=== PATIENT | female | born 1990 | race Two or more races ===

== ENCOUNTER 2024-03-01 18:59 | Emergency (ER) | payer OTHER ==
[~2024-03-01] VITALS: Ht 162.6 cm; Wt 65.8 kg
[~2024-03-01 18:59] MED LIST: CIPRO500 MG PO; PRENA1 TRUE CO1 EACH; RELAGESIC TABLE1 TAB PO
[2024-03-01] MEDS ORDERED: SYNTHROID75 MCG PO (19:56)
== END 2024-03-01 22:11 | disposition home or self-care (01) ==
LOC: ER 19:00
DX: O98.512 Other viral diseases complicating pregnancy, second trimester (principal); U07.1 COVID-19; Z3A.27 27 weeks gestation of pregnancy; Z88.6 Allergy status to analgesic agent; E03.9 Hypothyroidism, unspecified

== ENCOUNTER 2024-05-22 13:35 | Outpatient (CLI) | payer OTHER ==
[~2024-05-22 13:35] MED LIST changes: +SYNTHROID75 MCG PO
== END 2024-05-22 14:48 | disposition home or self-care (01) ==
LOC: NST 13:35
PROVIDERS: ATTEND Obstetrics & Gynecology Maternal & Fetal Medicine
DX: Z34.83 Encounter for supervision of other normal pregnancy, third trimester (principal)

== ENCOUNTER 2024-05-25 14:05 | Inpatient (IN) | payer OTHER ==
[2024-05-25] VITALS (7 sets, daily range): BP systolic 120–147; BP diastolic 67–86
[~2024-05-25] VITALS: Ht 170.2 cm; Wt 80.3 kg
[2024-05-25] MEDS ORDERED: AMPICILLIN SODIUM 2,000 MG VIAL ONE (14:09)
[2024-05-25] MEDS ORDERED: RINGERS SOLUTION,LACTATED 1,000 ML IV SCH (14:15)
[2024-05-25] MEDS ORDERED: AMPICILLIN SODIUM 2,000 MG VIAL IV ONE (14:15)
[2024-05-25] MEDS ORDERED: VALTREX1000 MG PO (14:29)
[2024-05-25] MEDS ORDERED: OXYTOCIN 20 UNITS/500ML RL PIGGYBAG IV ONE (15:02)
[2024-05-25] MEDS ORDERED: ERYTHROMYCIN BASE OPHT 1GM EACH TUBE OP ONE ×2 (15:02→20:00)
[2024-05-25] MEDS ORDERED: CHLORHEXIDINE GLUCONATE 120 ML BOTTLE TOP ONE ×2 (15:03→20:00)
[2024-05-25] MEDS ORDERED: OXYTOCIN 20 UNITS/1000ML RL PIGGYBAG IV ONE (15:03)
[2024-05-25] MEDS ORDERED: LIDOCAINE HCL 1% 10ML VIAL ONE (15:03)
[2024-05-25] MEDS ORDERED: OXYTOCIN 500 ML IV SCH (15:30)
[2024-05-25 15:49] LABS: HEMATOCRIT 40.6 % (36.0-45.00); HEMOGLOBIN 13.1 g/dL (12.0-15.00); MEAN CELL VOLUME 90.8 fL (80.00-100.00); MEAN CORPUSCULAR HEMOGLOBIN 29.4 pg (27.00-32.0); MEAN CORPUSCULAR HGB CONC 32.4 g/dl (32.0-36.0); PLATELET COUNT 155 K/uL (150-450); RED BLOOD COUNT 4.47 M/uL (4.00-6.00); RED CELL DISTRIBUTION WIDTH 16.7 % (11.5-14.5)
[2024-05-25 15:54] LABS: ALBUMIN 2.9 gm/dL (3.4-5.0); BILIRUBIN TOTAL 9.53 mg/dL (0.3-1.2); CALCIUM 10.3 mg/dL (8.5-10.1); CREATININE SERUM 1.81 mg/dL (0.55-1.02); GFR 32.4; GLOBULINA 4.4 G/DL (2.4-3.5); POTASSIUM 4.64 mEq/L (3.5-5.1); TOTAL PROTEIN 7.3 gm/dL (6.4-8.2)
[2024-05-25] MEDS ORDERED: MORPHINE SULFATE 4 MG/ML CARTRIDGE IV STA (16:08)
[2024-05-25 16:54] LABS: INR 1.42
[2024-05-25] MEDS ORDERED: AMPICILLIN SODIUM 1,000 MG VIAL IV SCH (17:00)
[2024-05-25] MEDS ORDERED: NALOXONE HCL 0.4 MG/ML AMPUL ONE (17:17)
[2024-05-25] MEDS ORDERED: IBUprofen 400 MG TABLET PO PRN (18:15)
[2024-05-25] MEDS ORDERED: OXYTOCIN 1,000 ML IV SCH (18:15)
[2024-05-25] MEDS ORDERED: OxyCODONE HCL/APAP UD (PERCOCET) PO PRN (18:15)
[2024-05-25 18:43] LABS: PARTIAL THROMBOPLASTIN TIME 38.9 SECONDS (22.0-34.0); PROTHROMBIN TIME 15.1 SECONDS (9.0-11.5)
[2024-05-25] MEDS ORDERED: NALOXONE HCL 0.4 MG/ML AMPUL IV ONE (20:00)
[2024-05-25] MEDS ORDERED: LIDOCAINE HCL 1% 10ML VIAL IJ ONE (20:00)
[2024-05-26 08:40] VITALS: BP 129/81
[2024-05-26 16:59] VITALS: BP 128/70
[2024-05-26 17:27] LABS: HEMATOCRIT 33.5 % (36.0-45.00); HEMOGLOBIN 10.7 g/dL (12.0-15.00); MEAN CELL VOLUME 91.4 fL (80.00-100.00); MEAN CORPUSCULAR HEMOGLOBIN 29.3 pg (27.00-32.0); PLATELET COUNT 145 K/uL (150-450); RED BLOOD COUNT 3.67 M/uL (4.00-6.00); RED CELL DISTRIBUTION WIDTH 16.9 % (11.5-14.5)
[2024-05-26 17:31] LABS: PH,URINE 5.5 (5.0-8.0); URINE APPEARANCE Cloudy; URINE BILIRRUBIN Negative (NEGATIVE); URINE BLOOD Large; URINE COLOR Yellow; URINE GLUCOSE Negative (NEGATIVE); URINE KETONE Negative (NEGATIVE); URINE LEUKOCYTE Small; URINE NITRATE Negative; URINE PROTEIN Negative (NEGATIVE); URINE UROBILINOGEN 0.2 E.U./dl
[2024-05-26 17:35] LABS: URINE BACTERIA 85.6 uL (0.0-1933); URINE EPITHELIAL CELLS 13.6 uL (0.0-38.8); URINE WBC 94.2 uL (0.0-23.2)
[2024-05-26 18:13] LABS: ALBUMIN 2.2 gm/dL (3.4-5.0); BILIRUBIN TOTAL 9.67 mg/dL (0.3-1.2); CALCIUM 9.1 mg/dL (8.5-10.1); CREATININE SERUM 1.84 mg/dL (0.55-1.02); GFR 31.79; GLOBULINA 3.3 G/DL (2.4-3.5); POTASSIUM 4.29 mEq/L (3.5-5.1); TOTAL PROTEIN 5.5 gm/dL (6.4-8.2)
[2024-05-26 18:19] LABS: URINE CAST 0.14 uL (0.0-1.40)
[2024-05-26 23:34] VITALS: BP 141/86
[2024-05-27 07:49] VITALS: BP 136/78
[2024-05-27 10:00] LABS: INR 1.52
[2024-05-27 10:15] LABS: PARTIAL THROMBOPLASTIN TIME 44.9 SECONDS (22.0-34.0); PROTHROMBIN TIME 16.1 SECONDS (9.0-11.5)
[2024-05-27 10:17] LABS: ALBUMIN 1.9 gm/dL (3.4-5.0); BILIRUBIN TOTAL 8.85 mg/dL (0.3-1.2); CREATININE SERUM 1.43 mg/dL (0.55-1.02); GFR 42.52; POTASSIUM 3.9 mEq/L (3.5-5.1); TOTAL PROTEIN 4.9 gm/dL (6.4-8.2)
[2024-05-27 16:42] VITALS: BP 135/88
[2024-05-28 01:00] VITALS: BP 131/84
[2024-05-28 08:16] VITALS: BP 125/77
[2024-05-28 08:17] LABS: MEAN CELL VOLUME 90.2 fL (80.00-100.00); MEAN CORPUSCULAR HEMOGLOBIN 30.1 pg (27.00-32.0); MEAN CORPUSCULAR HGB CONC 33.4 g/dl (32.0-36.0); RED BLOOD COUNT 2.99 M/uL (4.00-6.00); RED CELL DISTRIBUTION WIDTH 16.8 % (11.5-14.5)
[2024-05-28 08:18] LABS: D DIMER 10.42 MG/L; INR 1.49
[2024-05-28 08:26] LABS: PARTIAL THROMBOPLASTIN TIME 43.2 SECONDS (22.0-34.0); PROTHROMBIN TIME 15.8 SECONDS (9.0-11.5)
[2024-05-28 08:27] LABS: ALBUMIN 1.7 gm/dL (3.4-5.0); BILIRUBIN TOTAL 8.56 mg/dL (0.3-1.2); BILIRUBIN,CONJUGATED 6.81 mg/dL (0.0-0.2); BILIRUBIN,UNCONJUGATED 1.75 mg/dL (0.0-0.6); TOTAL PROTEIN 4.5 gm/dL (6.4-8.2)
[2024-05-28 09:05] LABS: PLATELET COUNT 120 K/uL (150-450)
[2024-05-28 10:05] LABS: hav igm Negative (Negative); hcv Non Reactive (Non Reactive); hep b c Negative (Negative); hep b s ag Negative (Negative)
[2024-05-28 12:30] VITALS: BP 135/87
[2024-05-28] MEDS ORDERED: PHYTONADIONE 10 MG/ML AMPUL SUBCUTANEO SCH (12:50)
[2024-05-28 16:42] VITALS: BP 127/86
[2024-05-29 00:35] VITALS: BP 128/81
[2024-05-29] MEDS ORDERED: CITRIC ACID/SODIUM CITRATE 30 ML BLIST.PACK PO ONE (01:30)
[2024-05-29 07:09] LABS: HEMATOCRIT 28.7 % (36.0-45.00); HEMOGLOBIN 9.4 g/dL (12.0-15.00); MEAN CELL VOLUME 90.6 fL (80.00-100.00); MEAN CORPUSCULAR HEMOGLOBIN 29.8 pg (27.00-32.0); MEAN CORPUSCULAR HGB CONC 32.9 g/dl (32.0-36.0); PLATELET COUNT 137 K/uL (150-450); RED BLOOD COUNT 3.17 M/uL (4.00-6.00); RED CELL DISTRIBUTION WIDTH 17.3 % (11.5-14.5)
[2024-05-29 07:26] LABS: D DIMER 6.48 MG/L; INR 1.31; PARTIAL THROMBOPLASTIN TIME 36.8 SECONDS (22.0-34.0)
[2024-05-29 07:56] VITALS: BP 137/67
[2024-05-29] MEDS ORDERED: SOD FERRIC GLUC COMPLX/SUCROSE 125 MG in 0.9 % SODIUM CHLORIDE 100 ML IV SCH (10:29)
[2024-05-29] MEDS ORDERED: LEVOTHYROXINE SODIUM 75 MCG TABLET PO SCH (10:30)
[2024-05-29 15:54] VITALS: BP 125/82
[2024-05-30] VITALS: BP 135/84
[2024-05-30 09:00] VITALS: BP 125/81
== END 2024-05-30 11:15 | disposition home or self-care (01) | DRG 805 ==
LOC: LDR 14:05 → OB/GYN 14:05
PROVIDERS: Internal Medicine Hematology & Oncology; Obstetrics & Gynecology; ADMIT Obstetrics & Gynecology Maternal & Fetal Medicine; ATTEND Obstetrics & Gynecology Maternal & Fetal Medicine
PROC: 10E0XZZ Delivery of Products of Conception, External Approach (ICD-10-PCS; principal; 2024-05-25)
PROC: 0W8NXZZ Division of Female Perineum, External Approach (ICD-10-PCS; 2024-05-25)
PROC: 4A1HXCZ Monitoring of Products of Conception, Cardiac Rate, External Approach (ICD-10-PCS; 2024-05-25)
PROC: BW40ZZZ Ultrasonography of Abdomen (ICD-10-PCS; 2024-05-27)
DX: O14.24 HELLP syndrome, complicating childbirth (principal); D65 Disseminated intravascular coagulation [defibrination syndrome]; Z37.0 Single live birth; O99.12 Other diseases of the blood and blood-forming organs and certain disorders involving the immune mechanism complicating childbirth; Z3A.38 38 weeks gestation of pregnancy